=== PATIENT | female | born 2000 | race Caucasian/White ===

== ENCOUNTER 2024-07-28 06:04 | Inpatient (IN) ==
--- NOTE | 2024-07-22 10:33 | Anesthesiology Consultation ---
Date of Service July 22, 2024 Assessment & Plan (1) Encounter for pre-operative examination: - Infectious disease screening: Per assessment on 07/22/24- No known recent infectious disease contacts or current infectious disease symptoms. - Cardiology visit (05/06/24): "Chest potassium and magnesium level today [now WNL on most recent labs 06/2024].. Proper hydration encouraged.. Patient declines prophylactic therapy (selective beta-sheba then flecainide..) at this time though will reconsider if episodes become more frequent or severe.. Vagal maneuvers discussed.. Recommend electrophysiology evaluation, consideration for radiofrequency catheter ablation, post , especially since patient plans to become again.." Chart Review Chart Review: entry level software developer initiated History Surgery Operation Date: 07/28/24 08:00 Proposed Procedures p Primary Section - Felecia Elmore MD Height/Weight Height: 5 ft 7 in Weight: 108.862 kg Allergies Allergy/AdvReac Type Severity Reaction Status Date / Time penicillin G Allergy Unknown Hives Verified 07/22/24 09:24 Medications Home Medications Medication Instructions Recorded Confirmed Last Taken bqsmfayz-[id number]-Wu-FA 1 mg 1 tab PO DAILY 04/30/24 07/22/24 07/18/24 08:00 tablet sertraline 50 mg tablet (Zoloft) 50 mg PO QAM 04/30/24 07/22/24 07/18/24 08:00 magnesium oxide 400 mg PO 3XWK 07/12/24 07/22/24 07/16/24 cyanocobalamin (vitamin B-12) 1,000 mcg PO DAILY 07/22/24 07/22/24 Unknown 1,000 mcg tablet (Vitamin B-12) Past Medical History Medical History Depression History of COVID-19 Multiple (no hx hospitalization), most recent 08/2022 Iron deficiency anemia Hx iron infusion ~04/2024 Low blood pressure reading Baseline 100s/60s per patient SVT (supraventricular tachycardia) Follows with [facility] Past Surgical History Surgical History No history of previous surgery Social History Smoking Status: Never smoker Do You Dip or Chew Tobacco: No Hx Alcohol Use: No Hx Substance Use: No substance use type: does not use Testing Laboratory Results 07/14/24 WBC 8.53 H/H 12.4/38.3 PLATELETS 150 POTASSIUM 4.1 MAGNESIUM 1.8 Electrocardiogram Date: 05/06/24 NSr at 76bpm. Rightward axis. Echocardiogram Date: 01/13/24 LVEF 55-59%. LV wall motion is normal. No significant valvular disease.
[2024-07-28 06:57] LABS: Hematocrit (blood only) 39.8 % (37.0-47.0); Hemoglobin 13.2 g/dl (12.0-16.0); Mean Corpuscular Hemoglobin 26.3 pg (25.0-34.0); Mean Corpuscular Hgb Conc 33.2 g/dL (32.0-36.0); Mean Corpuscular Volume 79.4 fL (80.0-100.0); Mean Platelet Volume 9.7 fL (9.4-12.4); Platelet Count 150 K/uL (130-400); RDW Coefficient of Variation 20.9 % (11.5-14.5); RDW Standard Deviation 58.6 fL (36.4-46.3); Red Blood Count 5.01 M/uL (4.20-5.40); White Blood Count 8.46 K/ul (4.8-10.8)
[2024-07-28] MEDS ORDERED: SODIUM CHLORIDE 0.9% 50 ML IV PRN (07:02)
[2024-07-28] MEDS ORDERED: SODIUM CHLORIDE 0.9% 100 ML IV PRN (07:02)
[2024-07-28] MEDS: SODIUM CHLORIDE 0.9% 1,000 ML IV SCH ×2 (07:15→16:55)
[2024-07-28] MEDS: ACETAMINOPHEN 500 MG TAB PO SCH (07:41)
--- NOTE | 2024-07-28 08:00 | History & Physical Bridge Note ---
Date of Service July 28, 2024 History & Physical Bridge Note I have examined the patient, reviewed the History & Physical and in the interval since the performance of the History & Physical I have noted the following changes of clinical significance: no changes noted We discussed options of trial of vaginal to avoid major surgery. She had shoulder dystocia in 2022 and repiar of vaginal laceration which had long time to heal. She decided for Csection. Patient understands C section is a major surgery, with risks including but not limited to bleeding , infection, injury to surrounding organs like bowels, bladder, ureters, adhesions, scarring, wound infection, blood cloths in legs/ lungs, longer recovery. All questions were answered. She signed an informed consent.
[2024-07-28] MEDS ORDERED: MoRPHine SULFATE 2 MG/ML CARP IV PRN (08:04)
[2024-07-28] MEDS ORDERED: NALOXONE HCL 1 MG in SODIUM CHLORIDE 0.9% 1,000 ML IV PRN (08:04)
[2024-07-28] MEDS ORDERED: MEPERIDINE HCL 25 MG/ML CARP/VIAL IV PRN (08:04)
[2024-07-28] MEDS ORDERED: ONDANSETRON INJ 2 MG/ML 2 ML VIAL IV PRN (08:04)
[2024-07-28] MEDS ORDERED: NALOXONE HCL 0.08 MG in SYRINGE 1.8 ML IV PRN (08:04)
[2024-07-28] MEDS ORDERED: HYDROmorphone INJ 0.5 MG/0.5 ML SYR IV PRN ×2 (08:04→09:18)
[2024-07-28] MEDS ORDERED: diphenhydrAMINE 50 MG/ML VIAL IV PRN (08:04)
[2024-07-28] MEDS ORDERED: NALOXONE HCL 0.4 MG/1 ML VIAL/CARP IV PRN (08:04)
[2024-07-28] MEDS ORDERED: ePHEDrine sulfate 50 MG/ML AMP IV PRN (08:04)
[2024-07-28] MEDS ORDERED: NALBUPHINE HCL INJ 10 MG/ML AMP IV PRN (08:04)
[2024-07-28] MEDS ORDERED: PROMETHAZINE 6.25 MG/50.25 ML BAG IV PRN (08:04)
[2024-07-28] MEDS ORDERED: oxyCODONE HCL IR 5 MG TAB (IMMEDIATE RELEASE) PO PRN (08:04)
[2024-07-28] MEDS ORDERED: MoRPHine SULFATE PF 1 MG/ML 10 ML AMP/VIAL ONE (08:11)
[2024-07-28] MEDS ORDERED: NO NARCOTICS OR SEDATIVES SCH (08:15)
[2024-07-28] MEDS ORDERED: DC INTRASPINAL MORPHINE SCH (08:15)
[2024-07-28] MEDS: CITRIC ACID/SODIUM CITRATE 15 ML UDC PO SCH (08:20)
[2024-07-28] MEDS ORDERED: ONDANSETRON INJ 2 MG/ML 2 ML VIAL ONE (08:34)
[2024-07-28] MEDS ORDERED: OXYTOCIN 10 UNITS/ML VIAL ONE (08:34)
[2024-07-28] MEDS ORDERED: PHENYLEPHRINE HCL 10 MG/ML VIAL ONE (08:34)
[2024-07-28] MEDS ORDERED: MAGNESIUM HYDROXIDE SUSP 30 ML UDC PO PRN (09:18)
[2024-07-28] MEDS ORDERED: HYDROCORTISONE ACETATE 25 MG SUPP PR PRN (09:18)
[2024-07-28] MEDS ORDERED: BENZOCAINE 20% SPRY 85 APPLN/85 GM CAN EXT PRN (09:18)
[2024-07-28] MEDS ORDERED: PROMETHAZINE 12.5 MG/50.5 ML BAG IV PRN (09:18)
[2024-07-28] MEDS ORDERED: SENNA 8.6 MG TAB PO PRN (09:18)
[2024-07-28] MEDS ORDERED: CALCIUM CARBONATE 500 MG CHEWABLE TAB PO PRN (09:18)
[2024-07-28] MEDS: OXYTOCIN 20 UNITS/LR 1,002 ML IV SCH (09:20)
--- NOTE | 2024-07-28 09:24 | Anesthesiology Progress Note ---
Date of Service July 28, 2024 Anesthesia Post Procedure Vital Signs Vital Signs: Temp Pulse Resp BP Pulse Ox 07/28/24 09:18 74 117/94 100 07/28/24 07:15 36.7 C 75 18 110/58 L 07/28/24 06:20 36.8 C 93 H 18 124/71 07/28/24 06:14 93 H 124/71 Transfer of Care Handoff Completed per policy Notes Mental Status: alert / awake / arousable Nausea / Vomiting: adequately controlled Pain: adequately controlled Airway Patency, RR, SpO2: stable & adequate BP & HR: stable & adequate Hydration State: stable & adequate Neuraxial Anesthesia: was administered and sensory block is resolving Anesthetic Complications: no major complications apparent and Pt Satisfied with anesthetic care
--- OUTSIDE RECORDS SUMMARY | 2024-07-28 09:25 | External Medical Summary | Summary of Care ---
Author Name Unknown Organization [facility] Address [address] [place] [address] Phone [phone] Care Team Providers Care Factory Representative Name Role Phone Romelia Álvarez Primary Care Provider [phone] Reason for Visit * Reason Comments Return Visit Encounter Details Date Type Department Care Team (Latest Contact Info) Description 07/14/2024 8:15 AM EST Office Visit Gynecology/Obstetri delia [facility] [address] [facility] [place] [address] Kalani Mayes CRNP [address] [facility] [place] [address] Normal , third trimester*; Depression complicating , antepartum; Obesity in , antepartum; Antepartum anemia complicating ; PSVT (paroxysmal supraventricular tachycardia) ([facility]); History of shoulder dystocia in prior ; Decreased movements in third trimester, single or unspecified fetus Allergies Active Allergy Reactions Criticality Noted Date Comments Penicillins Hives 11/07/2023 documented as of this encounter (statuses as of 07/14/2024) Medications Forte Oral Tablet Take by mouth. Active Sertraline HCl 50 MG Oral Tablet (Zoloft)Indicati ons:Encounter for supervision of other normal in first trimester,Other depression Take 1 Tablet by mouth daily. 90 Tablet 3 12/24/2023 Active Magnesium Oxide 400 MG Oral Tablet Take 1 Tablet by mouth once a day on Friday, Friday, and Friday only. Active documented as of this encounter (statuses as of 07/14/2024) Active Problems Problem Noted Date Diagnosed Date History of shoulder dystocia in prior 07/07/2024 Iron deficiency anemia 05/13/2024 PSVT (paroxysmal supraventricular tachycardia) 1 07/10/2023 Overview (05/10/2024): Per Cardiology 04/2024: RECOMMENDATIONS/PLAN: Options of management discussed with patient. Check potassium and magnesium level today, possible addition of supplementation noted. Proper hydration encouraged. Patient declines prophylactic pharmacologic therapy (selective beta-sheba then flecainide if beta-sheba therapy does not adequately control the SVT) at this time though will reconsider if episodes become more frequent or severe Vagal maneuvers discussed in detail. When to report to the closest ER discussed. Adenosine discussed (if hemodynamically stable). Direct current cardioversion discussed (if hemodynamically unable). Recommend Electrophysiology evaluation, consideration for radiofrequency catheter ablation, post , especially since patient plans to become again. General Cardiology follow-up in 6-8 weeks or as needed. ER with emergencies. Antepartum anemia complicating 024 Overview (04/28/2024): Hgb 10.8 at 26 weeks, ferritin 6 Recommended IV iron Encounter for supervision of other normal , unspecified trimester 12/24/2023 Obesity in , antepartum 12/24/2023 Overview (07/07/2024): Early glucola The patient's pre-gravid BMI is 31.94. Depression complicating , antepartum Overview (12/24/2023): History of depression, not good at remembering to take meds. Would like to restart zoloft. 50mg zoloft started 12/24/2023 Estimated Date of Delivery Comme nts Yes 07/30/2024 Based on Ultraso und documented as of this encounter (statuses as of 07/14/2024) Resolved Problems Problem Noted Date Diagnosed Date Resolved Date Glucose intolerance of 01/23/2024 07/07/2024 Overview (02/06/2024): Elevated 1 hr at 13 weeks, 3 hr GTT WNL Needs 3 hr GTT at 26-28 weeks documented as of this encounter (statuses as of 07/14/2024) Immunizations Name Administration Dates Next Due TDAP, Age 7 and older, IM (Adacel) 05/10/2024 documented as of this encounter Social History Tobacco Use Types Packs/Day Years Used Date Smoking Tobacco: Never Smokeless Tobacco: Never Alcohol Use Standard Drinks/Week Comments Not Currently 0 (1 standard drink = 0.6 oz pur e alcohol) Hunger Vital Sign Answer Date Recorded Within the past 12 months, y ou worried that your food would run out before you got the money to buy more. Never true 05/23/20 24 Within the past 12 months, t he food you bought just didn't last and you didn't have money to get more. Never true 05/23/2024 [place] Depression Scale Answer Date Recorded [place] Depression Scale Total 5 06/17/2024 The thought of harming myself has occurred to me . Never 06/17/2024 Childcare Answer Date Recorded Do you feel overwhelmed with taking care of a child, family member or friend? No 05/23/2024 Does your family need help f inding childcare? (Household - for ages 0-17 years) Not on file 05/23/2024 Clothing Answer Date Recorded Have you been unable to get clothing when it was really needed? No 05/23/2024 Is your family able to get c lothes or diapers when needed? (Household - for ages 0-17 years) Not on file 05/23/2024 Personal Safety Answer Date Recorded Do you feel unsafe or have concerns for your saf ety? No 05/23/2024 Do you have concerns for you r family's safety? (Household - for ages 0-17 years) Not on file 05/23/2024 Utilities Answer Date Recorded Do you have trouble paying y our heating, water, or electric bill? No 05/23/2024 Is your family able to pay t he heat, water, or electric bill? (Household - for ages 0-17 years) Not on file 05/23/2024 Does your family have access to good internet? (Household - for ages 0-17 years) Not on file 05/23/2024 Employment Status Answer Date Recorded Are you unemployed or without regular income? No 05/23/2024 Does the household have a re gular source of income? (Household - for ages 0-17 years) Not on file 05/23/2024 Social Connections Answer Date Recorded How often do you feel lonely or isolated from th ose around you? Never 05/23/2024 Financial Resource Strain Answer Date R ecorded Do you have any trouble payi ng for your medications, or do you think you might in the future? No 05/23/2024 Does your family have troubl e paying for medicine? (Household - for ages 0-17 years) Not on file 05/23/2024 Transportation Needs Answer Date Record ed Do you have trouble getting a ride to medical visits or work? (Adult - for ages 18 years and over) Not on file 05/23/2024 Does your family have a hard time getting a ride to doctors visits? (Household - for ages 0-17 years) Not on file 05/23/2024 Has lack of transportation k ept you from medical appointments, meetings, work, or from getting things needed for daily living? Check all that apply. No 05/23/2024 Do you (or your family) have trouble finding or paying for a ride (transportation)? (Household - for ages 0-17 years) Not on file 05/23/2024 Housing Stability Answer Date Recorded Do you currently live in a s helter or have no steady place to sleep at night? No 05/23/2024 Do you think you are at risk of becoming homeless? (Adult - for ages 18 years and over) Not on file 05/23/2024 Does your family worry about paying for your home or becoming homeless? (Household - for ages 0-17 years) Not on file 1 07/24/2023 Are you homeless or worried that you might be in the future? No 05/23/2024 Are you (or your family) dexter eless or worried that you might be in the future? (Household - for ages 0-17 years) Not on file Food Insecurity Answer Date Recorded Do you need food for this week? No 05/23/2024 Are you able to get enough f ood for your family? (Household - for ages 0-17 years) Not on file 05/23/2024 Does your family need food t his week? (Household - for ages 0-17 years) Not on file 05/23/2024 Do you always have enough fo od for your family? 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 Was at L&D 2 days ago, had reactive NST. States she called yesterday and was told she did not need another NST, as it was reactive the evening before. She still reports feeling less than 10 movements in 2 hours. Recent growth u/s. History of shoulder dystocia with last delivery, baby was 8lb7oz. Based on growth u/s, suspect this baby could be about the same size at term. 39w IOL scheduled today. She already has an appt scheduled for next week to meet with Dr. Puga to discuss delivery. ASSESSMENT assessment with Non-stress Test completed on 07/14/2024 at 37.5weeks gestation for indication of decreased movement heart baseline: 140 bpm Variability: Moderate Decelerations: absent Accelerations: present Contractions: None NST start time: 0808 NST stop time: 08 NST strip reviewed, interpreted, and approved by OB provider, HILDA Yoo . NST strip stored in clinic storage file Pt recorded 11 FM during NST Advised to call with continued concern of decreased FM, though reassured that NST is reactive today. HILDA Yoo * Vicki Garrett CMA - 07/14/2024 8:01 AM EST 37w5d Pain in pelvic area and left side lower back. Has worsened in the last week. States baby is not moving as much as he used to. Not getting 10 movements in 2 hours. documented in this encounter Plan of Treatment Upcoming Encounters Date Type Department Care Team (Late st Contact Info) Description 07/20/2024 9:30 AM EST Office Visit Gynecology/Obstetrics [facility] [address] [place] [place] [id number] Ryan Puga MD [address] [place] [place] [address] Health Maintenance Due Date Last Done Comments Depression Monitoring 2013 COVID-19 Vaccine ( season) 2024 06/04/2021, 05/13/2021 Influenza Vaccine (FLU shot) (#1) 2024 04/08/2023, 03/11/2023, 03/29/2020, Additional history exists Gonorrhea / Chlamydia Screen 12/23/2024 12/24/2023 Pap Smear 12/23/2026 12/24/2023 DTap/Tdap Vaccines (9 - Td or Tdap) 05/10/2034 05/10/2024, 06/28/2022, 11/17/2013, Additional history exists Hepatitis B Vaccine Completed 07/19/2002, 2001, 2001 HPV (Gardasil) Vaccine Completed 7, 04/26/2016, 02/08/2016 MENINGOCOCCAL (MENACTRA/MENVEO) Aged Out No longer eligible based on patient's age to complete this topic Pneumococcal Vaccine: Pediatrics (0 to 5 Years) and At-Risk Patients (6 to 18 Years and 19+ Years) Aged Out No longer eligib le based on patient's age to complete this topic documented as of this encounter Medical Devices Not on filedocumented as of this encounter Visit Diagnoses Diagnosis Normal , third trimester- Primary Depression complicating , antepartum Mental disorders of mother, antepartum Obesity in , antepartum Obesity complicating , childbirth, or the puerperium, antepartum condition or complication Antepartum anemia complicating Anemia, antepartum PSVT (paroxysmal supraventricular tachycardia) (HCC) Paroxysmal supraventricular tachycardia History of shoulder dystocia in prior Decreased movements in third trimester, single or unspecified fetus documented in this encounter Care Teams Factory Representative Relationship Specialty Start Date End Date Romelia Álvarez CRNP [address] [place] [address] PCP - General Nurse Practitioner 05/10/24 documented as of this encounter
--- OUTSIDE RECORDS SUMMARY | 2024-07-28 09:25 | External Medical Summary | Summary of Care ---
Author Name Unknown Organization [facility] Address [address] [place] [address] Phone [phone] Care Team Providers Care Alumni Relations Manager Name Role Phone Romelia Álvarez Primary Care Provider [phone]- [phone] Reason for Visit * Reason Comments Anemia Follow-Up Encounter Details Date Type Department Care Team (Late st Contact Info) Description 07/23/2024 10:15 AM [facility], [place] [address], [place] [id number] Clinic, [facility] [address] [place] [address] Antepartum anemia complicating * Allergies Active Allergy Reactions Criticality Noted Date Comments Penicillins Hives 11/07/2023 documented as of this encounter (statuses as of 07/23/2024) Medications Forte Oral Tablet Take by mouth. Active Sertraline HCl 50 MG Oral Tablet (Zoloft)Indicati ons:Encounter for supervision of other normal in first trimester,Other depression Take 1 Tablet by mouth daily. 90 Tablet 3 12/24/2023 Active Magnesium Oxide 400 MG Oral Tablet Take 1 Tablet by mouth once a day on Friday, Friday, and Friday only. Active B-12 1000 MCG Oral Tablet Take 1 Tablet by mouth in the morning. 07/16/2024 Active documented as of this encounter (statuses as of 07/23/2024) Active Problems Problem Noted Date Diagnosed Date [...] as of this encounter (statuses as of 07/23/2024) Resolved Problems Problem Noted Date Diagnosed Date Resolved Date Glucose intolerance of 01/23/2024 07/07/2024 Overview (02/06/2024): Elevated 1 hr at 13 weeks, 3 hr GTT WNL Needs 3 hr GTT at 26-28 weeks documented as of this encounter (statuses as of 07/23/2024) Immunizations Name Administration Dates Next Due TDAP, [...] money to get more. 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 She states she saw the MyG last week and did start b12 supplement as listed below. GA: 39w0d Estimated Date of Delivery: 07/30/24 Hgb: 12.4 g/dL TSAT: 13 % Ferritin: 37 ng/mL B12: 199 pg/mL FA: 5.2 ng/mL Patient received Infed on 06/02/2024 Hgb is within target range for the 3rd trimester. Iron studies below target range. B12 low. Plan: START B12 1000mcg daily (07/16) Due to late gestational age, follow up labs unable to be obtained prior to delivery. Anemia Clinic will discharge at this time. Thank you for allowing us to participate in the care of this patient. Grace Gilmore, PharmD Clinical Pharmacist [facility] (P: [phone]) 07/23/2024 1:54 PM documented in this encounter Plan of Treatment Upcoming Encounters Date Type Department Care Team (Late st Contact Info) Description 07/27/2024 11:45 AM EST Office Visit Gynecology/Obstetrics [facility] [address] [place] [address] Ryan Puga MD [address] [place] [address] Health Maintenance Due Date Last Done Comments [...] as of this encounter Visit Diagnoses Diagnosis Antepartum anemia complicating - Primary Anemia, antepartum documented in this encounter Care Teams Alumni Relations Manager Relationship Specialty Start Date End Date Romelia Álvarez CRNP [facility] [address] [place] [place] [address] PCP - General Nurse Practitioner 05/10/24 documented as of this encounter
--- OUTSIDE RECORDS SUMMARY | 2024-07-28 09:25 | External Medical Summary | Summary of Care ---
Author Name Unknown Organization [facility] Address [address] [place] [address] Phone [phone] Care Team Providers Care Chemical Treatment Plant Technician Name Role Phone Romelia Álvarez Primary Care Provider +1- [phone] Reason for Visit * Reason Comments Return Visit Encounter Details Date Type Department Care Team (Latest Contact Info) Description 07/27/2024 11:45 AM EST Office Visit Gynecology/Obstetri [facility] [address] [place] [address] Ryan Puga MD [address] [place] [address] Depression complicating , antepartum*; Encounter for supervision of other normal , unspecified trimester; Obesity in , antepartum; Antepartum anemia complicating ; PSVT (paroxysmal supraventricular tachycardia) ([facility]); History of shoulder dystocia in prior Allergies Active Allergy Reactions Criticality Noted Date Comments Penicillins Hives 11/07/2023 documented as of this encounter (statuses as of 07/28/2024) Medications Forte Oral Tablet Take by mouth. [...] as of this encounter (statuses as of 07/28/2024) Active Problems Problem Noted Date Diagnosed Date [...] as of this encounter (statuses as of 07/28/2024) Resolved Problems Problem Noted Date Diagnosed Date Resolved Date Glucose intolerance of 01/23/2024 07/07/2024 Overview (02/06/2024): Elevated 1 hr at 13 weeks, 3 hr GTT WNL Needs 3 hr GTT at 26-28 weeks documented as of this encounter (statuses as of 07/28/2024) Immunizations Name Administration Dates Next Due TDAP, [...] money to get more. 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 Maki for c/se tomorrow Pt has no complaints today * Kianna Zimmer LPN - 07/27/2024 11:47 AM EST 39w4d Denies any concerns documented in this encounter Plan of Treatment Health Maintenance Due Date Last Done Comments [...] as of this encounter Visit Diagnoses Diagnosis Depression complicating , antepartum- Primary Mental disorders of mother, antepartum Encounter for supervision of other normal , unspecified trimester Obesity in , antepartum Obesity complicating , childbirth, or the puerperium, antepartum condition or complication Antepartum anemia complicating Anemia, antepartum PSVT (paroxysmal supraventricular tachycardia) (HCC) Paroxysmal supraventricular tachycardia History of shoulder dystocia in prior documented in this encounter Care Teams Chemical Treatment Plant Technician Relationship Specialty Start Date End Date Romelia Álvarez CRNP [facility] [address] [place] [address] PCP - General Nurse Practitioner 05/10/24 documented as of this encounter
--- OUTSIDE RECORDS SUMMARY | 2024-07-28 09:25 | External Medical Summary | Summary of Care ---
Author Name Unknown Organization [facility] Address [address] [place] [address] Phone [phone] Care Team Providers Care Cte Teacher Name Role Phone Romelia Álvarez Primary Care Provider [phone]- [phone] Reason for Visit * Reason Comments Anemia Follow-Up Encounter Details Date Type Department Care Team (Late st Contact Info) Description 07/14/2024 9:30 AM [facility] Pharm[facility] Pharmacy, [place] [address], [place] [id number] Clinic, [facility] [address] [place] [address] Antepartum anemia complicating * Allergies Active Allergy [...] money to get more. 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 Will follow-up with results. Brenda Gilmore, PharmD, [facility] Clinical Pharmacist [facility] (P: [phone]) 07/14/2024 2:31 PM documented in this encounter Plan of Treatment Upcoming Encounters Date Type Department Care Team (Late st Contact Info) Description 07/15/2024 9:30 AM EST Pharmacy Pharmacy, [place] [address] [place] [address] Clinic, Anemia [address] [place] [address] 07/20/2024 9:30 AM EST Office Visit Gynecology/Obstetrics [facility] [address] [place] [id number] Ryan Puga MD [address] [place] [address] Health Maintenance Due Date Last Done Comments [...] antepartum documented in this encounter Care Teams Cte Teacher Relationship Specialty Start Date End Date Romelia Álvarez CRNP [address] [place] [id number] PCP - General Nurse Practitioner 05/10/24 documented as of this encounter
--- OUTSIDE RECORDS SUMMARY | 2024-07-28 09:25 | External Medical Summary | Summary of Care ---
Author Name Unknown Organization [facility] Address [address] [place] [address] Phone [phone] Care Team Providers Care Operating Engineer Apprentice Name Role Phone Romelia Álvarez Primary Care Provider +1- [phone] Reason for Visit * Reason Comments Anemia Follow-Up Encounter Details Date Type Department Care Team (Late st Contact Info) Description 07/15/2024 9:30 AM [facility] Pharmacy Pharmacy, [place] [address], [place] [id number] Clinic, [facility] [address] [place] [address] Antepartum anemia complicating * Allergies Active Allergy Reactions Criticality Noted Date Comments Penicillins Hives 11/07/2023 documented as of this encounter (statuses as of 07/16/2024) Medications Forte Oral Tablet Take by mouth. [...] as of this encounter (statuses as of 07/16/2024) Active Problems Problem Noted Date Diagnosed Date [...] as of this encounter (statuses as of 07/16/2024) Resolved Problems Problem Noted Date Diagnosed Date Resolved Date Glucose intolerance of 01/23/2024 07/07/2024 Overview (02/06/2024): Elevated 1 hr at 13 weeks, 3 hr GTT WNL Needs 3 hr GTT at 26-28 weeks documented as of this encounter (statuses as of 07/16/2024) Immunizations Name Administration Dates Next Due TDAP, [...] money to get more. 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 MyG sent with same. GA: [id number] Estimated Date of Delivery: 07/30/24 Hgb: 12.4 g/dL TSAT: 13 % Ferritin: 37 ng/mL B12: 199 pg/mL FA: 5.2 ng/mL Patient received Infed on 06/02/2024 Hgb is within target range for the 3rd trimester. Iron studies below target range. B12 low. Plan: START B12 1000mcg daily Due to late gestational age, follow up labs unable to be obtained prior to delivery. Will follow up in 1 week if no return call or myG message not read. Anemia Clinic will continue to follow. Thank you for allowing us to participate in the care of thispatient. Grace Gilmore, PharmD Clinical Pharmacist [facility] (P: [phone]) 07/16/2024 3:55 PM documented in this encounter Plan of Treatment Upcoming Encounters Date Type Department Care Team (Late st Contact Info) Description 07/20/2024 9:30 AM EST Office Visit Gynecology/Obstetrics [facility] [address] [place] [id number] Ryan Puga MD [address] [place] [address] 07/23/2024 9:30 AM EST Pharmacy Pharmacy, [place] [address] [place] [address] Clinic, An[facility] [address] [place] [address] Health Maintenance Due Date Last Done Comments [...] antepartum documented in this encounter Care Teams Operating Engineer Apprentice Relationship Specialty Start Date End Date Romelia Álvarez CRNP [address] [place] [address] PCP - General Nurse Practitioner 05/10/24 documented as of this encounter
--- NOTE | 2024-07-28 09:33 | Operative Report ---
Post Operative Report Pre & Post Diagnosis Operation Date: 07/28/24 08:00 23-year-old -0-0-1 at 39 weeks and 5 days of gestation, history of prior shoulder dystocia, requesting primary delivery. I identified the patient and participated in the time-out.: Yes Procedure Operation Date: 07/28/24 08:00 <No data on this case meets the specified criteria> Primary low-transverse with financial skin incision Surgeon Felecia Elmore MD Workers[employer] Magistrate Dr. Puga Estimated Blood Loss 374 Findings Consistent with Post-Op Diagnosis Baby was a viable male infant delivered at 0 8:37 AM, Apgars 7/9, weight 3740 g, Maternal findings normal uterus fallopian tubes and ovaries. Specimens Placenta and cord Drains Castellanos catheter drained 100 mL of clear urine Anesthesia Type Spinal Complications none Disposition Accompanied Patient To Recovery: Yes Indications patient is a 23-year-old -0-0-1 at 39 weeks and 5 days of gestation who has a history of shoulder dysplasia with prior delivery, requesting primary C- section. Description of Procedure Patient was taken to operating room where a spinal anesthesia was given without difficulty. She was placed in dorsal supine position with a leftward tilt. She was prepared and draped in usual sterile fashion. A financial skin incision was made and carried through to the underlying layer of fascia with the Bovie. Fascia was incised in the midline and incision was extended laterally with the help of Mckeon scissors. Then the upper aspect of the fascial incision was grasped with 2 Alcon clamps elevated the underlying rectus muscles were dissected off sharply with Mckeon scissors. Same thing was done on the lower incision. Then the muscles were in the midline, peritoneum was identified grasped with 2 pickups and entered sharply with Metzenbaum scissors. Peritoneal incision was extended superior and inferiorly with good visualization of the bladder. The bladder blade was inserted. Vesicouterine peritoneum was identified, grasped with pickups and entered sharply with Metzenbaum scissors, bladder flap was created digitally and bladder blade was reinserted. Uterus was incised in transverse fashion, incision was extended laterally, membranes were ruptured and clear fluid was obtained. Baby's head was delivered without difficulty, followed by shoulders and body with minimal traction without difficulty. There was nuchal cord x 2 around the neck which were reduced. Mouth and nose were suctioned there was dried on the field he was vigorously crying and moving. The cord was clamped times and cut and then the was handed off to the pediatric team. Then the placenta was delivered manually as intact and complete. Uterus was externalized and cleared of all clots and debris's. Uterine incision was repaired with 0 Vicryl in a running locked fashion, second umbricating layer was placed with the same suture in running locked fashion. Excellent hemostasis achieved. Cul-de-sac and the pelvis was irrigated with warm normal saline and suctioned. Incision was checked of anesthetic again. Uterus was returned to the abdomen, parietal peritoneum was reapproximated with 3-0 Vicryl in a running fashion and the muscles were reapproximated in the same suture in a running fashion. All of the fascia and rectus muscles were hemostatic. Rectus fascia was reapproximated with 0 Vicryl starting from both columns meeting in the midline. Subcuticular fat tissue was brought together with 2-0 Vicryl in a running fashion, skin was closed with 4-0 Monocryl in a subcuticular cuticular fashion. The mom and baby tolerated procedure well. Sponge needle instrument count was correct x3. she was given 3 g of cefazolin before surgery. No complications happened, I was and Dr. Puga was present during whole procedure. My assistant vice president was needed for retraction, hemostasis and aid during delivery of infant I attest to the content of the Intraoperative Record and any orders documented therein. Any exceptions are noted below.
[2024-07-28] MEDS: KETOROLAC 30 MG/ML VIAL IV SCH (10:28)
[2024-07-28] MEDS: MEASLES, MUMPS & RUBELLA VIRUS VACCINE (MMR) 0.5ML VIAL SQ ONE (10:29)
[2024-07-28] MEDS: MoRPHine SULFATE PF 1 MG/ML 10 ML AMP/VIAL INT SPINAL ONE (10:29)
[2024-07-28] MEDS ORDERED: Nursing to Pharmacy Communication SCH (11:00)
[2024-07-28] MEDS: SIMETHICONE 80 MG CHEW PO SCH (14:19)
[2024-07-28] MEDS: ACETAMINOPHEN 325 MG TAB PO SCH (15:24)
[2024-07-28] MEDS: DOCUSATE SODIUM 100 MG CAP PO SCH (21:10)
[2024-07-28] MEDS: MAGNESIUM OXIDE 400 MG TAB PO SCH (21:10)
[2024-07-29] MEDS ORDERED: diphenhydrAMINE Capsule 25 MG CAP PO PRN (02:05)
[2024-07-29] MEDS ORDERED: ONDANSETRON INJ 2 MG/ML 2 ML VIAL IV PRN (02:05)
[2024-07-29] MEDS ORDERED: diphenhydrAMINE 50 MG/ML VIAL IV PRN (02:05)
[2024-07-29] MEDS ORDERED: oxyCODONE HCL IR 5 MG TAB (IMMEDIATE RELEASE) PO PRN (02:05)
[2024-07-29 06:01] LABS: Basophils # (auto) 0.03 K/uL (0.00-0.20); Basophils % (auto) 0.3 %; Eosinophils # (auto) 0.05 K/uL (0.00-0.50); Eosinophils % (auto) 0.5 %; Hematocrit (blood only) 33.9 % (37.0-47.0); Hemoglobin 11.1 g/dl (12.0-16.0); Immature Granulocytes # (auto) 0.04 K/uL (0.01-0.20); Immature Granulocytes % (auto) 0.4 %; Lymphocytes # (auto) 1.31 K/uL (1.20-3.40); Mean Corpuscular Hemoglobin 26.1 pg (25.0-34.0); Mean Corpuscular Hgb Conc 32.7 g/dL (32.0-36.0); Mean Corpuscular Volume 79.8 fL (80.0-100.0); Mean Platelet Volume 9.9 fL (9.4-12.4); Monocytes # (auto) 0.75 K/uL (0.11-0.59); Neutrophils # (auto) 7.16 K/uL (1.40-6.50); Neutrophils % (auto) 76.8 %; Platelet Count 141 K/uL (130-400); RDW Coefficient of Variation 20.5 % (11.5-14.5); RDW Standard Deviation 58.4 fL (36.4-46.3); Red Blood Count 4.25 M/uL (4.20-5.40); White Blood Count 9.34 K/ul (4.8-10.8)
[2024-07-29 06:31] LABS: Anisocytosis Present; Polychromasia 1+
--- NOTE | 2024-07-29 08:56 | Obstetrical Progress Note ---
Date of Service July 29, 2024 Assessment & Plan Admission and Anticipated Discharge Date Admission Date: July 28, 2024 Subjective Patient is seen and examined. She feels well, no complaints. Pain is under control with oral meds. Ambulating without dizziness Voiding without difficulty Tolerating regular diet with out N&V Flatus + Bleeding is minimal No fever/ chills/ CP/ SOB/ N&V/ Leg pain Breast feeding without problems Lab Results 07/28/24 07/28/24 07/29/24 Range/Units 06:34 14:16 05:39 WBC 8.46 9.34 (4.8-10.8) K/ul RBC 5.01 4.25 (4.20-5.40) M/uL Hgb 13.2 11.1 L (12.0-16.0) g/dl Hct 39.8 33.9 L (37.0-47.0) % MCV 79.4 L 79.8 L (80.0-100.0) fL MCH 26.3 26.1 (25.0-34.0) pg MCHC 33.2 32.7 (32.0-36.0) g/dL RDW Std Deviation 58.6 H 58.4 H (36.4-46.3) fL RDW Coeff of [place] 20.9 H 20.5 H (11.5-14.5) % Plt Count 150 141 (130-400) K/uL MPV 9.7 9.9 (9.4-12.4) fL Immature Gran % (Auto) 0.4 % Neut % (Auto) 76.8 % Lymph % (Auto) 14.0 % [place] % (Auto) 8.0 % Eos % (Auto) 0.5 % Baso % (Auto) 0.3 % Neut # (Auto) 7.16 H (1.40-6.50) K/uL Lymph # (Auto) 1.31 (1.20-3.40) K/uL [place] # (Auto) 0.75 H (0.11-0.59) K/uL Eos # (Auto) 0.05 (0.00-0.50) K/uL Baso # (Auto) 0.03 (0.00-0.20) K/uL Immature Gran # (Auto) 0.04 (0.01-0.20) K/uL Polychromasia 1+ Anisocytosis Present POC Glucose 111 H (70-99) mg/dl Treponema pallidum Ab Negative (Negative) Blood Type AB Positive Antibody Screen NEGATIVE Crossmatch See Detail Vital Signs Temp Pulse Pulse Resp BP Pulse Ox O2 Del Method 07/29/24 08:10 36.8 C 77 16 112/68 97 Room Air 07/29/24 03:37 36.4 C L 72 20 114/70 98 Room Air 07/29/24 02:00 18 98 07/29/24 01:00 20 98 07/29/24 00:24 36.8 C 74 16 119/62 100 Room Air 07/29/24 00:00 18 95 07/28/24 23:00 18 98 07/28/24 22:00 18 96 07/28/24 21:30 16 95 PE: General: Alert, orientedx3, NAD CVS: S1S2 RRR Lungs; CTAB Abd: soft, NT, ND, BS+, fundus firm, below Umbilicus Incision: Clean, dry, intact Perineum intact, Lochia rubra minimal Ext; NT, no edema AP: 23 yo s/p C Section, pod# 1 VSS Afebrile doing well Continue routine postop care Encourage ambulation, PO intake All questions were answered D/C home tomorrow Results & Data Vital Signs (Past 12 Hours) Vital Signs Temp Pulse Pulse Resp BP Pulse Ox O2 Del Method 07/29/24 08:10 36.8 C 77 16 112/68 97 Room Air 07/29/24 03:37 36.4 C L 72 20 114/70 98 Room Air 07/29/24 02:00 18 98 07/29/24 01:00 20 98 07/29/24 00:24 36.8 C 74 16 119/62 100 Room Air 07/29/24 00:00 18 95 07/28/24 23:00 18 98 07/28/24 22:00 18 96 07/28/24 21:30 16 95
[2024-07-29] MEDS: PRENATAL VITAMIN 1 TAB PO SCH ×2 (08:59→09:00)
[2024-07-29] MEDS: FERROUS SULFATE 325 MG TAB PO SCH (08:59)
[2024-07-29] MEDS: SERTRALINE HCL 50 MG TABLET PO SCH (09:00)
[2024-07-29] MEDS: CYANOCOBALAMIN (B-12) 500 MCG TABLET PO SCH (09:00)
[2024-07-29] MEDS ORDERED: KETOROLAC 30 MG/ML VIAL IV PRN (09:19)
[2024-07-29] MEDS: IBUPROFEN 600 MG TAB PO SCH (09:28)
[2024-07-29] MEDS: ceFAZolin 3000MG 3,000 MG/72.5 ML BAG IV ONE (19:40)
[2024-07-29] MEDS: LACTATED RINGER'S 1,000 ML IV SCH (19:41)
[2024-07-29] MEDS: SODIUM CHLORIDE 0.9% 1,000 ML IV SCH (19:42)
[2024-07-29] MEDS: DIPHTHER/TETAN/PERTUS Vaccine (Tdap, Adol/Adult) 0.5mL IM ONE (19:45)
[2024-07-29] MEDS: bisacodyL 5 MG TABEC PO SCH (20:18)
[2024-07-30 06:07] LABS: Hemoglobin 10.6 g/dl (12.0-16.0)
[2024-07-30 08:15] VITALS: BP 122/69; PULSE 67; RESP 14; TEMP 97.7; O2SAT 98
--- NOTE | 2024-07-30 08:35 | Obstetrical Progress Note ---
Date of Service July 30, 2024 Assessment & Plan Admission and Anticipated Discharge Date Admission Date: July 28, 2024 Subjective Patient is seen and examined. She feels well, no complaints. Pain is under control with oral meds. Ambulating without dizziness Voiding without difficulty Tolerating regular diet with out N&V Flatus + Bleeding is minimal No fever/ chills/ CP/ SOB/ N&V/ Leg pain Breast feeding without problems Vital Signs Temp Pulse Pulse Resp BP Pulse Ox O2 Del Method 07/30/24 07:20 36.5 C 67 14 122/69 98 Room Air 07/30/24 03:30 36.7 C 70 16 128/75 99 Room Air Lab Results 07/28/24 07/28/24 07/29/24 Range/Units 06:34 14:16 05:39 WBC 8.46 9.34 (4.8-10.8) K/ul RBC 5.01 4.25 (4.20-5.40) M/uL Hgb 13.2 11.1 L (12.0-16.0) g/dl Hct 39.8 33.9 L (37.0-47.0) % MCV 79.4 L 79.8 L (80.0-100.0) fL MCH 26.3 26.1 (25.0-34.0) pg MCHC 33.2 32.7 (32.0-36.0) g/dL RDW Std Deviation 58.6 H 58.4 H (36.4-46.3) fL RDW Coeff of Colton 20.9 H 20.5 H (11.5-14.5) % Plt Count 150 141 (130-400) K/uL MPV 9.7 9.9 (9.4-12.4) fL Immature Gran % (Auto) 0.4 % Neut % (Auto) 76.8 % Lymph % (Auto) 14.0 % [place] % (Auto) 8.0 % Eos % (Auto) 0.5 % Baso % (Auto) 0.3 % Neut # (Auto) 7.16 H (1.40-6.50) K/uL Lymph # (Auto) 1.31 (1.20-3.40) K/uL [place] # (Auto) 0.75 H (0.11-0.59) K/uL Eos # (Auto) 0.05 (0.00-0.50) K/uL Baso # (Auto) 0.03 (0.00-0.20) K/uL Immature Gran # (Auto) 0.04 (0.01-0.20) K/uL Polychromasia 1+ Anisocytosis Present POC Glucose 111 H (70-99) mg/dl Treponema pallidum Ab Negative (Negative) Blood Type AB Positive Antibody Screen NEGATIVE Crossmatch See Detail 07/30/24 Range/Units 05:33 WBC (4.8-10.8) K/ul RBC (4.20-5.40) M/uL Hgb 10.6 L (12.0-16.0) g/dl Hct 33.0 L (37.0-47.0) % MCV (80.0-100.0) fL MCH (25.0-34.0) pg MCHC (32.0-36.0) g/dL RDW Std Deviation (36.4-46.3) fL RDW Coeff of [place] (11.5-14.5) % Plt Count (130-400) K/uL MPV (9.4-12.4) fL Immature Gran % (Auto) % Neut % (Auto) % Lymph % (Auto) % [place] % (Auto) % Eos % (Auto) % Baso % (Auto) % Neut # (Auto) (1.40-6.50) K/uL Lymph # (Auto) (1.20-3.40) K/uL [place] # (Auto) (0.11-0.59) K/uL Eos # (Auto) (0.00-0.50) K/uL Baso # (Auto) (0.00-0.20) K/uL Immature Gran # (Auto) (0.01-0.20) K/uL Polychromasia Anisocytosis POC Glucose (70-99) mg/dl Treponema pallidum Ab (Negative) Blood Type Antibody Screen Crossmatch PE: General: Alert, orientedx3, NAD CVS: S1S2 RRR Lungs; CTAB Abd: soft, NT, ND, BS+, fundus firm, below Umbilicus Incision: Clean, dry, intact Perineum intact, Lochia rubra minimal Ext; NT, no edema AP: 23 yo s/p C Section, pod# 2 VSS Afebrile doing well Continue routine postop care Encourage ambulation, PO intake All questions were answered D/C home , f/u in office Results & Data Vital Signs (Past 12 Hours) Vital Signs Temp Pulse Pulse Resp BP Pulse Ox O2 Del Method 07/30/24 07:20 36.5 C 67 14 122/69 98 Room Air 07/30/24 03:30 36.7 C 70 16 128/75 99 Room Air
[2024-07-30] MEDS: IBUPROFEN 600 MG TAB PO PRN (08:51)
[2024-07-30] MEDS ORDERED: bisacodyL 10 MG SUPP PR PRN (09:19)
[2024-07-30] MEDS ORDERED: ACETAMINOPHEN 325 MG TAB PO PRN (15:19)
== END 2024-07-30 10:00 | disposition home health service (06) | DRG 788 ==
LOC: 4S1 06:04 → EDSTATUS 08:00 → 4E2 12:03